=== PATIENT | male | born 1995 | race African-American/Black ===

== ENCOUNTER 2018-04-04 22:11 | Inpatient (IN) | payer OTHER ==
[~2018-04-04] VITALS: Ht 188 cm; Wt 89.2 kg
[2018-04-04 22:23] VITALS: Ht 188 cm; Wt 89.2 kg
[2018-04-04 23:05] LABS: BASOPHIL % 0.3 % (0-2); PLATELET COUNT 203 x10^3mcL (130-400)
[2018-04-04 23:23] LABS: ALBUMIN 3.7 g/dL (3.4-5.0); ALKALINE PHOSPHATASE 53 U/L (46-116); ALT/SGPT 32 U/L (16-63); BILIRUBIN TOTAL 0.23 mg/dL (0.20-1.00); CALCIUM 8.1 mg/dL (8.5-10.1); CARBON DIOXIDE 22.6 mmol/L (21-32); CHLORIDE SERUM 105 mmol/L (98-107); CREATININE SERUM 1.2 mg/dL (0.7-1.3); FREE T4 1.11 ng/dL (0.76-1.46); GFR1 > 60 mL/min; GLUCOSE SERUM 223 mg/dL (74-106); SODIUM SERUM 139 mmol/L (136-145); TOTAL PROTEIN, SERUM 6.2 g/dL (6.4-8.2)
[2018-04-04 23:26] LABS: POTASSIUM SERUM 2.7 mmol/L (3.5-5.1)
[2018-04-04 23:44] LABS: AST/SGOT 21 U/L (15-37)
[2018-04-05] VITALS (8 sets, daily range): BP systolic 93–108; BP diastolic 46–64
[2018-04-05] MEDS ORDERED: ELOCON0.11 TOP (00:08)
[2018-04-05] MEDS ORDERED: METFORMIN HYDR500 M1 PO (00:08)
[2018-04-05] MEDS ORDERED: PRAZOSIN HYDROCH2 MG PO (00:08)
[2018-04-05] MEDS ORDERED: SIMVASTATIN40 M1 PO (00:09)
[2018-04-05] MEDS ORDERED: CITALOPRAM HYDR20 M1 PO (00:54)
[2018-04-05] MEDS ORDERED: HALOPERIDOL5 MG PO (00:55)
[2018-04-05] MEDS ORDERED: RISPERIDONE4 M2 PO (00:55)
[2018-04-05] MEDS ORDERED: ASMANEX TW0.22 MG/A1 IH (00:57)
[2018-04-05] MEDS ORDERED: XOPENEX1.25 MG/3 NEB (00:59)
[2018-04-05 01:00] LABS: microscopic required? NO
[2018-04-05 01:01] LABS: MAGNESIUM 1.8 mg/dL (1.8-2.4)
[2018-04-05 01:22] LABS: UA SPECIFIC GRAVITY >=1.030 (1.005-1.035); urine erythrocyte NEGATIVE (NEGATIVE)
[2018-04-05 01:35] LABS: AMPHETAMINE QUAL UR NONE DETECTED (See below)
[2018-04-05 07:16] LABS: CALCIUM 8.5 mg/dL (8.5-10.1); CARBON DIOXIDE 24.2 mmol/L (21-32); CHLORIDE SERUM 106 mmol/L (98-107); CHOLESTEROL 89 mg/dL (<200); CHOLESTEROL/HDL RATIO 2.9; CREATININE SERUM 0.8 mg/dL (0.7-1.3); GFR1 > 60 mL/min; GLUCOSE SERUM 99 mg/dL (74-106); HDL CHOLESTEROL 31 mg/dL (40-60); POTASSIUM SERUM 3.4 mmol/L (3.5-5.1); SODIUM SERUM 140 mmol/L (136-145); TRIGLYCERIDES 50 mg/dL (<150)
[2018-04-06 05:36] VITALS: BP 111/67
[2018-04-06 09:28] VITALS: BP 109/63
[2018-04-06 13:01] VITALS: BP 109/63
== END 2018-04-06 16:25 | disposition other institution (70) | DRG 641 ==
LOC: ED 22:11 → DU 23:48
PROVIDERS: Emergency Medicine; Internal Medicine
DX: E87.6 Hypokalemia (principal); R07.89 Other chest pain; R09.1 Pleurisy; E11.9 Type 2 diabetes mellitus without complications; E83.42 Hypomagnesemia; R00.0 Tachycardia, unspecified; J45.909 Unspecified asthma, uncomplicated; I10 Essential (primary) hypertension; Z68.31 Body mass index [BMI] 31.0-31.9, adult; Z91.018 Allergy to other foods
CPT/HCPCS: 82962; 83880; 84439; 85378; A9500; J2060; J2550; J2785; J3475; J3490; J7030; J7626; Q0092